=== PATIENT | female | born 1965 | race Two or more races ===

== ENCOUNTER → 2017-03-13 | Outpatient (CLI) | payer OTHER | END | disposition home or self-care (01) | LOC: US 18:12 | PROC: B54CZZZ Ultrasonography of Left Lower Extremity Veins (ICD-10-PCS; principal; 2017-03-13) | DX: M79.605 Pain in left leg (principal) ==

== ENCOUNTER 2017-12-21 14:49 | Emergency (ER) | payer OTHER ==
[~2017-12-21] VITALS: Ht 152.4 cm; Wt 63.0 kg
[2017-12-21 15:01] VITALS: BP 134/79
== END 2017-12-21 16:00 | disposition home or self-care (01) ==
LOC: ED 14:49
DX: M77.12 Lateral epicondylitis, left elbow (principal); E11.9 Type 2 diabetes mellitus without complications; Z88.1 Allergy status to other antibiotic agents

== ENCOUNTER → 2020-10-07 | Outpatient (CLI) | payer OTHER ==
[2020-10-07 20:25] LABS: FREE T4 1.21 ng/dL (0.76-1.46)
== END | disposition home or self-care (01) ==
LOC: LB 19:40
DX: R53.83 Other fatigue (principal); R14.0 Abdominal distension (gaseous)
CPT/HCPCS: 84439

== ENCOUNTER → 2020-10-11 | Outpatient (CLI) | payer OTHER | END | disposition home or self-care (01) | LOC: US 08:26 | PROC: BW20ZZZ Computerized Tomography (CT Scan) of Abdomen (ICD-10-PCS; principal; 2020-10-11) | PROC: BW40ZZZ Ultrasonography of Abdomen (ICD-10-PCS; 2020-10-11) | DX: R14.0 Abdominal distension (gaseous) (principal); R10.9 Unspecified abdominal pain ==

== ENCOUNTER 2020-10-19 20:35 | Emergency (ER) | payer OTHER ==
[~2020-10-19] VITALS: Ht 157.5 cm; Wt 59.9 kg
[2020-10-19 20:42] VITALS: Ht 157.5 cm; Wt 59.9 kg
[2020-10-19 21:34] LABS: BASOPHIL % 0.9 % (0.2-1.3); RED CELL DISTRIBUTION WIDTH 13.7 % (12.3-17.7)
[2020-10-19 21:47] LABS: PLATELET COUNT 411 x10^3mcL (179-408)
[2020-10-19 22:03] LABS: rbc morphology (normal/abnorm) ABNORMAL (NORMAL)
[2020-10-19 22:07] LABS: CALCIUM 8.9 mg/dL (8.5-10.1); CARBON DIOXIDE 25.6 mmol/L (21-32); CHLORIDE SERUM 103 mmol/L (98-107); CREATININE SERUM 0.8 mg/dL (0.6-1.0); GFR1 > 60 mL/min; GLUCOSE SERUM 115 mg/dL (74-106); POTASSIUM SERUM 4.2 mmol/L (3.5-5.1); SODIUM SERUM 139 mmol/L (136-145)
[2020-10-19 22:13] LABS: ALBUMIN 2.6 g/dL (3.4-5.0); ALKALINE PHOSPHATASE 61 U/L (46-116); ALT/SGPT 24 U/L (14-59); AST/SGOT 35 U/L (15-37); BILIRUBIN TOTAL 0.2 mg/dL (0.20-1.00); LIPASE 189 IU/L (73-393); TOTAL PROTEIN, SERUM 7.1 g/dL (6.4-8.2)
[2020-10-20] MEDS ORDERED: ZOF4 PO (00:28)
[2020-10-20 01:38] LABS: APPEARANCE FLUID HAZY; COLOR FLUID YELLOW; SOURCE FLUID ASCITES
[2020-10-20 02:07] VITALS: BP 122/78
[2020-10-20 02:29] LABS: RBC FLUID 689 /cumm; WBC FLUID 344 /cumm
[2020-10-20 02:30] LABS: LYMPHOCYTE FLUID 85 %
== END 2020-10-20 03:15 | disposition home or self-care (01) ==
LOC: ED 20:35
PROVIDERS: Emergency Medicine
DX: R18.8 Other ascites (principal); R06.00 Dyspnea, unspecified; E11.9 Type 2 diabetes mellitus without complications; Z88.1 Allergy status to other antibiotic agents
CPT/HCPCS: 49083; P9047

== ENCOUNTER → 2020-10-26 | Outpatient (CLI) | payer OTHER ==
[~2020-10-26] MED LIST: CLARITHROMYCIN250 MG PO; FLAGYL500 MG PO; FUROSEMIDE40 MG PO; METRONIDAZOLE250 M1 PO; PANTOPRAZOLE SO20 M1 PO; POTASSIUM CHLO20 ME4 PO; ZOF4 PO
== END | disposition home or self-care (01) ==
LOC: LB 13:58
DX: K74.60 Unspecified cirrhosis of liver (principal)
CPT/HCPCS: 82172; 83516; 87522

== ENCOUNTER 2020-10-27 15:24 | Inpatient (IN) | payer OTHER ==
[~2020-10-27] VITALS: Ht 152.4 cm; Wt 50.8 kg
[~2020-10-27 15:24] MED LIST changes: -CLARITHROMYCIN250 MG PO; -FLAGYL500 MG PO; -FUROSEMIDE40 MG PO; -METRONIDAZOLE250 M1 PO; -PANTOPRAZOLE SO20 M1 PO; -POTASSIUM CHLO20 ME4 PO
[2020-10-27 17:22] LABS: BASOPHIL % 0.7 % (0.2-1.3); PLATELET COUNT 465 x10^3mcL (179-408)
[2020-10-27 17:27] LABS: UA SPECIFIC GRAVITY >=1.030 (1.005-1.035); microscopic required? YES; urine erythrocyte NEGATIVE (NEGATIVE)
[2020-10-27 17:36] LABS: CALCIUM 9.2 mg/dL (8.5-10.1); CARBON DIOXIDE 27.9 mmol/L (21-32); CREATININE SERUM 1.1 mg/dL (0.6-1.0)
[2020-10-27 17:41] LABS: BILIRUBIN TOTAL 0.3 mg/dL (0.20-1.00)
[2020-10-27 17:42] LABS: ALBUMIN 2.9 g/dL (3.4-5.0); TOTAL PROTEIN, SERUM 8.6 g/dL (6.4-8.2)
[2020-10-27] MEDS ORDERED: PANTOPRAZOLE SO20 M1 PO (18:32)
[2020-10-27] MEDS ORDERED: METRONIDAZOLE250 M1 PO (18:32)
[2020-10-27] MEDS ORDERED: CLARITHROMYCIN250 MG PO (18:32)
[2020-10-27] MEDS ORDERED: POTASSIUM CHLO20 ME4 PO (18:33)
[2020-10-27] MEDS ORDERED: FLAGYL500 MG PO (18:33)
[2020-10-27] MEDS ORDERED: FUROSEMIDE40 MG PO (18:33)
[2020-10-27 20:20] LABS: CHOLESTEROL/HDL RATIO 2.1
[2020-10-27 22:16] VITALS: BP 119/78
[2020-10-28 05:17] VITALS: BP 121/74
[2020-10-28 06:34] LABS: BASOPHIL % 0.5 % (0.2-1.3); PLATELET COUNT 397 x10^3mcL (179-408); RED CELL DISTRIBUTION WIDTH 14.1 % (12.3-17.7)
[2020-10-28 06:56] LABS: CALCIUM 8.6 mg/dL (8.5-10.1); CARBON DIOXIDE 25.2 mmol/L (21-32); CHLORIDE SERUM 102 mmol/L (98-107); CREATININE SERUM 0.9 mg/dL (0.6-1.0); GFR1 > 60 mL/min; GLUCOSE SERUM 81 mg/dL (74-106); MAGNESIUM 1.8 mg/dL (1.8-2.4); PHOSPHOROUS 3.1 mg/dL (2.5-4.9); POTASSIUM SERUM 4.2 mmol/L (3.5-5.1); SODIUM SERUM 136 mmol/L (136-145)
[2020-10-28 11:37] LABS: IRON 11 ug/dL (50-170); TOTAL IRON BINDING CAPACITY 155 ug/dL (250-450)
[2020-10-28 12:45] LABS: RED BLOOD CELLS 3.76 M/mm3 (4.10-5.10)
[2020-10-28 12:50] VITALS: BP 115/72
[2020-10-28 16:22] VITALS: BP 128/79
[2020-10-28 20:16] VITALS: BP 132/79
[2020-10-29 05:28] VITALS: BP 128/84
[2020-10-29 06:21] LABS: BASOPHIL % 1.1 % (0.2-1.3); PLATELET COUNT 395 x10^3mcL (179-408)
[2020-10-29 07:08] LABS: CALCIUM 8.2 mg/dL (8.5-10.1); CHLORIDE SERUM 107 mmol/L (98-107); GFR1 > 60 mL/min; GLUCOSE SERUM 93 mg/dL (74-106); MAGNESIUM 2.1 mg/dL (1.8-2.4); PHOSPHOROUS 3.1 mg/dL (2.5-4.9); SODIUM SERUM 140 mmol/L (136-145)
[2020-10-29 08:14] VITALS: BP 132/89
[2020-10-29 12:20] VITALS: BP 113/79
[2020-10-29 15:58] VITALS: BP 133/81
[2020-10-29 17:48] LABS: SOURCE FLUID ASCITES
[2020-10-29 17:49] LABS: APPEARANCE FLUID HAZY; COLOR FLUID YELLOW; LYMPHOCYTE FLUID 66 %; MONOCYTE FLUID 6 %; RBC FLUID 2570 /cumm; WBC FLUID 750 /cumm
[2020-10-29 19:45] VITALS: BP 137/84
[2020-10-30 05:25] VITALS: BP 136/83
[2020-10-30 05:57] LABS: BASOPHIL % 1.1 % (0.2-1.3); RED CELL DISTRIBUTION WIDTH 13.7 % (12.3-17.7)
[2020-10-30 06:10] LABS: PLATELET COUNT 423 x10^3mcL (179-408)
[2020-10-30 06:11] LABS: rbc morphology (normal/abnorm) NORMAL (NORMAL)
[2020-10-30 06:17] LABS: CALCIUM 8.5 mg/dL (8.5-10.1); CARBON DIOXIDE 23.9 mmol/L (21-32); CHLORIDE SERUM 106 mmol/L (98-107); CREATININE SERUM 0.7 mg/dL (0.6-1.0); GFR1 > 60 mL/min; GLUCOSE SERUM 81 mg/dL (74-106); MAGNESIUM 1.8 mg/dL (1.8-2.4); PHOSPHOROUS 3.3 mg/dL (2.5-4.9); POTASSIUM SERUM 3.9 mmol/L (3.5-5.1); SODIUM SERUM 138 mmol/L (136-145)
[2020-10-30 07:49] VITALS: BP 134/85
[2020-10-30 11:51] VITALS: BP 117/83
[2020-10-30 16:24] VITALS: BP 119/71
[2020-10-30 19:54] LABS: microscopic required? YES; urine erythrocyte 3+ (NEGATIVE)
[2020-10-30 19:57] VITALS: BP 119/80
[2020-10-31 04:17] VITALS: BP 122/81
[2020-10-31 07:02] LABS: BASOPHIL % 0.2 % (0.2-1.3); RED CELL DISTRIBUTION WIDTH 14.2 % (12.3-17.7)
[2020-10-31 07:32] LABS: CALCIUM 8.8 mg/dL (8.5-10.1); CARBON DIOXIDE 25.4 mmol/L (21-32); CHLORIDE SERUM 109 mmol/L (98-107); CREATININE SERUM 0.7 mg/dL (0.6-1.0); GFR1 > 60 mL/min; GLUCOSE SERUM 168 mg/dL (74-106); MAGNESIUM 1.8 mg/dL (1.8-2.4); PHOSPHOROUS 3.8 mg/dL (2.5-4.9); POTASSIUM SERUM 4.1 mmol/L (3.5-5.1); SODIUM SERUM 141 mmol/L (136-145)
[2020-10-31 07:56] LABS: PLATELET COUNT 481 x10^3mcL (179-408)
[2020-10-31 08:00] VITALS: BP 122/72
[2020-10-31 12:16] VITALS: BP 129/78
[2020-10-31 16:41] VITALS: BP 130/78
[2020-10-31 20:15] VITALS: BP 121/77
[2020-11-01 05:30] VITALS: BP 131/80
[2020-11-01 07:47] LABS: CARBON DIOXIDE 26.4 mmol/L (21-32); CHLORIDE SERUM 106 mmol/L (98-107); CREATININE SERUM 0.8 mg/dL (0.6-1.0); GFR1 > 60 mL/min; GLUCOSE SERUM 84 mg/dL (74-106); MAGNESIUM 1.7 mg/dL (1.8-2.4); POTASSIUM SERUM 3.7 mmol/L (3.5-5.1); SODIUM SERUM 137 mmol/L (136-145)
[2020-11-01 07:48] LABS: BASOPHIL % 0.9 % (0.2-1.3); RED CELL DISTRIBUTION WIDTH 14.3 % (12.3-17.7)
[2020-11-01 08:00] VITALS: BP 124/74
[2020-11-01 11:17] LABS: PLATELET COUNT 503 x10^3mcL (179-408)
[2020-11-01 11:57] VITALS: BP 148/76
[2020-11-01 15:56] VITALS: BP 132/82
[2020-11-01 20:38] VITALS: BP 128/79
[2020-11-02 05:31] VITALS: BP 134/87
[2020-11-02 07:54] VITALS: BP 135/81
[2020-11-02 11:27] VITALS: BP 137/87
[2020-11-02 15:58] VITALS: BP 146/91
[2020-11-02 20:21] VITALS: BP 126/84
[2020-11-03 05:59] VITALS: BP 128/79
[2020-11-03 07:43] VITALS: BP 132/85
[2020-11-03 12:13] VITALS: BP 131/88
[2020-11-03 17:01] VITALS: BP 138/84
[2020-11-03 19:58] VITALS: BP 138/88
[2020-11-04 05:26] VITALS: BP 134/85
[2020-11-04 07:13] LABS: BASOPHIL % 1.2 % (0.2-1.3); RED CELL DISTRIBUTION WIDTH 14.3 % (12.3-17.7)
[2020-11-04 07:31] LABS: PLATELET COUNT 518 x10^3mcL (179-408)
[2020-11-04 07:46] VITALS: BP 138/85
[2020-11-04 08:00] LABS: CALCIUM 8.2 mg/dL (8.5-10.1); CARBON DIOXIDE 26.1 mmol/L (21-32); CHLORIDE SERUM 104 mmol/L (98-107); CREATININE SERUM 0.7 mg/dL (0.6-1.0); GFR1 > 60 mL/min; GLUCOSE SERUM 87 mg/dL (74-106); MAGNESIUM 1.8 mg/dL (1.8-2.4); PHOSPHOROUS 3.7 mg/dL (2.5-4.9); POTASSIUM SERUM 3.4 mmol/L (3.5-5.1); SODIUM SERUM 138 mmol/L (136-145)
[2020-11-04 11:38] VITALS: BP 134/86
[2020-11-04 16:02] VITALS: BP 131/79
[2020-11-04 17:35] VITALS: BP 138/84
== END 2020-11-04 19:40 | disposition home or self-care (01) | DRG 660 ==
LOC: ED 15:24 → DU 19:34
PROVIDERS: Emergency Medicine; Family Medicine; Internal Medicine Gastroenterology; Surgery; ADMIT Internal Medicine; ATTEND Internal Medicine
PROC: 0W9G3ZZ Drainage of Peritoneal Cavity, Percutaneous Approach (ICD-10-PCS; 2020-10-29)
PROC: 0WJP8ZZ Inspection of Gastrointestinal Tract, Via Natural or Artificial Opening Endoscopic Approach (ICD-10-PCS; 2020-10-29)
PROC: 0DJ08ZZ Inspection of Upper Intestinal Tract, Via Natural or Artificial Opening Endoscopic (ICD-10-PCS; principal; 2020-10-29 08:00)
PROC: 0T778DZ Dilation of Left Ureter with Intraluminal Device, Via Natural or Artificial Opening Endoscopic (ICD-10-PCS; 2020-11-02)
PROC: BT1F1ZZ Fluoroscopy of Left Kidney, Ureter and Bladder using Low Osmolar Contrast (ICD-10-PCS; 2020-11-02)
DX: N13.30 Unspecified hydronephrosis (principal); E87.1 Hypo-osmolality and hyponatremia; R18.8 Other ascites; Z20.822 Contact with and (suspected) exposure to COVID-19; N17.0 Acute kidney failure with tubular necrosis; Z88.8 Allergy status to other drugs, medicaments and biological substances; B19.20 Unspecified viral hepatitis C without hepatic coma; K74.60 Unspecified cirrhosis of liver; E86.0 Dehydration; K59.00 Constipation, unspecified; D64.9 Anemia, unspecified; K29.70 Gastritis, unspecified, without bleeding; K27.9 Peptic ulcer, site unspecified, unspecified as acute or chronic, without hemorrhage or perforation
CPT/HCPCS: 43235; 49083; 51610; 87116; 87206; 87804; C1729; C2625; C9113; G0378; J0696; J1200; J1610; J1885; J1956; J2250; J2270; J2310; J2405; J2704; J2916; J3010; J3475; J3490; J7030; Q9966; Q9967; U0003